=== PATIENT | male | born 1955 | race Native Hawaiian/Other Pacific Islander ===

== ENCOUNTER 2017-06-23 09:58 | Outpatient (CLI) | payer OTHER ==
[2017-06-23 11:10] LABS: PARTIAL THROMBOPLASTIN TIME 25.5 SECONDS (24.5-33.6)
== END 2017-06-23 19:01 | disposition home or self-care (01) ==
LOC: LAB 09:58
PROVIDERS: Family Medicine
DX: Z79.01 Long term (current) use of anticoagulants (principal); Z51.81 Encounter for therapeutic drug level monitoring
CPT/HCPCS: 85610; 85730

== ENCOUNTER 2018-08-01 21:25 | Emergency (ER) | payer OTHER ==
[~2018-08-01] VITALS: Ht 180.3 cm; Wt 103.0 kg
[2018-08-01] MEDS ORDERED: FISH OIL1 C10 PO (21:52)
[2018-08-01] MEDS ORDERED: CARV6.25 PO (21:53)
[2018-08-01] MEDS ORDERED: ASPIRIN 81 LOW81 MG PO (21:53)
[2018-08-01] MEDS ORDERED: SERT100T PO (21:54)
[2018-08-01] MEDS ORDERED: LISI20TA11 PO (21:54)
[2018-08-01] MEDS ORDERED: K-99 PO (21:54)
[2018-08-01] MEDS ORDERED: KP FOLIC ACID1 MG PO (21:55)
[2018-08-01] MEDS ORDERED: GLIP10TA55 PO (21:55)
[2018-08-01] MEDS ORDERED: FURO20TA67 PO (21:56)
[2018-08-01] MEDS ORDERED: LIPITOR10 MG PO (21:56)
[2018-08-01] MEDS ORDERED: CLOP75TA2 PO (21:56)
[2018-08-01] MEDS ORDERED: AMLODIPINE BESYLATE PO (21:57)
[2018-08-01 22:48] LABS: POTASSIUM 4.3 mmol/L (3.6-5.2)
[2018-08-01 23:04] LABS: PLATELET COUNT 141 K/uL (142-355)
[2018-08-01 23:10] LABS: PARTIAL THROMBOPLASTIN TIME 25.2 SECONDS (24.5-33.6)
[2018-08-02 02:22] VITALS: BP 151/71; TEMP 98.7
== END 2018-08-02 02:24 | disposition short-term general hospital (02) ==
LOC: ED 21:25
PROVIDERS: Family Medicine
DX: R31.9 Hematuria, unspecified (principal); N32.89 Other specified disorders of bladder
CPT/HCPCS: 36415; 80053; 84153; 85027; 85610; 85730; 96360; 99284

== ENCOUNTER 2018-08-02 02:26 | Outpatient (CLI) | payer OTHER ==
[~2018-08-02 02:26] MED LIST: AMLODIPINE BESYLATE PO; ASPIRIN 81 LOW81 MG PO; CARV6.25 PO; CLOP75TA2 PO; FISH OIL1 C10 PO; FURO20TA67 PO; GLIP10TA55 PO; K-99 PO; KP FOLIC ACID1 MG PO; LIPITOR10 MG PO; LISI20TA11 PO; SERT100T PO
== END 2018-08-02 02:53 | disposition short-term general hospital (02) ==
LOC: AMB 02:26
DX: R31.9 Hematuria, unspecified (principal); N32.89 Other specified disorders of bladder
CPT/HCPCS: A0425; A0427

== ENCOUNTER 2019-07-11 09:44 | Outpatient (CLI) | payer OTHER | END 2019-07-11 23:17 | disposition home or self-care (01) | LOC: RAD 09:44 | DX: Z13.820 Encounter for screening for osteoporosis (principal); M85.88 Other specified disorders of bone density and structure, other site ==

== ENCOUNTER 2020-02-07 20:25 | Emergency (ER) | payer OTHER ==
[~2020-02-07] VITALS: Ht 180.3 cm; Wt 90.7 kg
[2020-02-07 21:34] LABS: PLATELET COUNT 113 K/uL (142-355)
[2020-02-07 22:11] LABS: POTASSIUM 3.5 mmol/L (3.6-5.2)
[2020-02-08 02:00] VITALS: BP 142/71; TEMP 98.2
== END 2020-02-08 02:00 | disposition home or self-care (01) ==
LOC: ED 20:25
PROVIDERS: Family Medicine
DX: E11.65 Type 2 diabetes mellitus with hyperglycemia (principal); Z79.84 Long term (current) use of oral hypoglycemic drugs; K86.89 Other specified diseases of pancreas; R10.84 Generalized abdominal pain
CPT/HCPCS: 36415; 80053; 81000; 85027; 96360; 96375; 99284; J1815; Q9963

== ENCOUNTER 2020-03-07 16:02 | Outpatient (CLI) | payer OTHER | END 2020-03-07 22:23 | disposition home or self-care (01) | LOC: LAB 16:02 | DX: R60.0 Localized edema (principal) | CPT/HCPCS: 83880 ==